=== PATIENT | female | born 1995 | race Caucasian/White ===

== ENCOUNTER → 2019-03-07 | Outpatient (CLI) | payer MEDICAID, SELFPAY ==
[2019-03-07 17:56] LABS: Chlamydia Trachomatis by PCR Negative (Negative); Neisserai gonorrhoeae by PCR Negative (Negative); Probe Check PASS; Sample Adequacy Control PASS; Specimen Processing Control PASS
[2019-03-13 11:37] LABS: HPV Reflexed? NOT INDICATED
== END | disposition home or self-care (01) ==
LOC: LABSPEC 15:14
PROVIDERS: Visit Provider Obstetrics & Gynecology
DX: Z32.01 Encounter for pregnancy test, result positive (principal); Z12.4 Encounter for screening for malignant neoplasm of cervix; Z11.3 Encounter for screening for infections with a predominantly sexual mode of transmission
CPT/HCPCS: 87491; 87591; 88175; G0145

== ENCOUNTER → 2019-03-21 | Outpatient (CLI) | payer MEDICAID, SELFPAY ==
[2019-03-21 16:31] LABS: Absolute Lymphocyte Count 2.46 X10^3/ul (0.83-4.51); Absolute Neutrophil Count 12.8 X10^3/uL (2.0-7.7); Basophil# 0.02 X10^3/uL; Basophil% 0.1 % (0-1); Eosinophil# 0.16 X10^3/uL; Hematocrit 36.4 % (37-47); Hemoglobin 12.5 g/dl (12.0-15.0); Lymphocyte # 2.46 X10^3/ul (4.0); Mean Corp Hgb Conc 34.3 g/gl (32-36); Mean Corpuscular Hgb 29.2 pg (27.0-32.0); Mean Platelet Vol. 9.8 fl (6.2-12.0); Monocyte# 0.94 X10^3/uL; Monocyte% 5.7 % (0-10); Neutrophil # 12.75 X10^3/uL (2.7-7.7); Neutrophil % 77.6 % (47-70); Platelet Count 308 K/mm3 (150-450); RBC Distribution Width CV 14.4 % (11.6-14.6); Red Blood Count 4.28 M/mm3 (4.2-5.4); White Blood Count 16.4 K/mm3 (4.4-11.0)
[2019-03-21 16:33] LABS: POSITIVE COUNT NO; POSITIVE DIFFERENTIAL NO; POSITIVE MORPHOLOGY NO
[2019-03-21 16:40] LABS: Color, Urine Yellow (Yellow); Glucose, Dipstick Normal (Normal); Ketone-Dipstick Negative (Negative); Leukocyte Esterase-Dipstick 25 /ul (Negative); Nitrite-Dipstick Negative (Negative); Occult Blood-Urine Negative /ul (Negative); Protein-Dipstick Negative (Negative); Urine Bilirubin Dipstick Negative (Negative); Urine Clarity Clear (Clear); Urine Urobilinogen Normal (Normal)
[2019-03-21 16:44] LABS: Amphetamine Urine VISTA NEGATIVE (<1000 ng/mL); Barbiturate Urine VISTA NEGATIVE (< 200 ng/mL); Benzodiazepine Urine VISTA NEGATIVE (< 200 ng/mL); Cocaine Urine VISTA NEGATIVE (< 300 ng/mL); Ecstacy Urine VISTA NEGATIVE (< 500 ng/mL); Methadone Urine VISTA NEGATIVE (< 300 ng/mL); PCP Urine VISTA NEGATIVE (< 25 ng/mL); THC Urine VISTA NEGATIVE (< 50 ng/mL); Vista UDS pH Range 6
[2019-03-21 17:05] LABS: COTININE Drug Screen Negative (<200 ng/mL)
[2019-03-21 17:06] LABS: Thyroid Stim Hormone (TSH) 1.84 uIU/mL (0.358-3.74)
[2019-03-21 17:55] LABS: HIV - WCH Non-Reactive (Nonreactive); Rubella IgG 3.1 IU/mL
[2019-03-22 02:32] LABS: Prenatal RPR NONREACTIVE (NONREACTIVE)
[2019-03-25 11:52] LABS: HEPATITIS B SURFACE AG Negative (Negative); Hep C Antibodies <0.1 s/co ratio (0.0-0.9)
== END | disposition home or self-care (01) ==
LOC: WOBLAB 16:07
PROVIDERS: Visit Provider Obstetrics & Gynecology
DX: Z34.82 Encounter for supervision of other normal pregnancy, second trimester (principal)
CPT/HCPCS: 36415; 80307; 81002; 84443; 85025; 86703; 86762; 86803; 87340

== ENCOUNTER → 2019-06-19 16:41 | Outpatient (CLI) | payer MEDICAID, SELFPAY ==
[2019-06-19 17:42] LABS: Hematocrit 30.7 % (37-47); Hemoglobin 10.1 g/dL (12.0-15.0); Mean Corp Hgb Conc 32.9 g/dL (32-36); Mean Corpuscular Hgb 29.5 pg (27.0-32.0); Mean Corpuscular Volume 89.8 fL (81-99); Mean Platelet Vol. 9.6 fl (6.2-12.0); Platelet Count 353 K/mm3 (150-450); RBC Distribution Width CV 13.1 % (11.6-14.6); RBC Distribution Width SD 42.9 fl (35.1-43.9); Red Blood Count 3.42 M/mm3 (4.2-5.4); White Blood Count 12.9 K/mm3 (4.4-11.0)
[2019-06-19 18:16] LABS: Glucose Challenge Gest 1H 50g 122 mg/dL (70-140)
== END ==
PROVIDERS: Visit Provider Obstetrics & Gynecology
DX: Z34.83 Encounter for supervision of other normal pregnancy, third trimester (principal)
CPT/HCPCS: 36415; 82950; 85027; 86850

== ENCOUNTER → 2019-08-15 16:47 | Outpatient (CLI) | payer MEDICAID, SELFPAY | PROVIDERS: Referring Provider Advanced Practice Midwife; Visit Provider Advanced Practice Midwife | DX: Z36.85 Encounter for antenatal screening for Streptococcus B (principal) | CPT/HCPCS: 87081 ==

== ENCOUNTER → 2020-02-04 11:05 | Outpatient (CLI) | payer MEDICAID, SELFPAY ==
[2020-02-04 12:41] LABS: hCG Titer Quant., Serum 12137 mIU/mL (1-3)
== END ==
PROVIDERS: Visit Provider Obstetrics & Gynecology
DX: N91.2 Amenorrhea, unspecified (principal)
CPT/HCPCS: 36415; 84702

== ENCOUNTER → 2020-02-06 | Outpatient (CLI) | payer MEDICAID, SELFPAY ==
[2020-02-06 18:25] LABS: Absolute Lymphocyte Count 1.98 X10^3/uL (0.83-4.51); Basophil# 0.03 X10^3/uL; Basophil% 0.3 % (0-1); Eosinophil# 0.08 X10^3/uL; Eosinophils% 0.7 % (0-5); Hematocrit 33.4 % (37-47); Hemoglobin 10.7 g/dL (12.0-15.0); Lymphocyte # 1.98 X10^3/ul (4.0); Mean Corpuscular Hgb 25.9 pg (27.0-32.0); Mean Corpuscular Volume 80.9 fL (81-99); Mean Platelet Vol. 10.3 fl (6.2-12.0); Monocyte% 4.3 % (0-10); NRBC Flagged by Analyzer 0 % (0-5); Neutrophil # 9.01 X10^3/uL (2.7-7.7); Platelet Count 358 K/mm3 (150-450); RBC Distribution Width CV 16.3 % (11.6-14.6); RBC Distribution Width SD 47.8 fl (35.1-43.9); Red Blood Count 4.13 M/mm3 (4.2-5.4); White Blood Count 11.7 K/mm3 (4.4-11.0)
[2020-02-06 19:11] LABS: Color, Urine Yellow (Yellow); Glucose, Dipstick Normal (Normal); Ketone-Dipstick Negative (Negative); Leukocyte Esterase-Dipstick 25 /ul (Negative); Nitrite-Dipstick Negative (Negative); Occult Blood-Urine Negative /ul (Negative); Protein-Dipstick Negative (Negative); Specific Gravity, Urine 1.015 (1.002-1.030); Urine Bilirubin Dipstick Negative (Negative); Urine Clarity Clear (Clear); Urine Urobilinogen Normal (Normal)
[2020-02-06 19:14] LABS: Thyroid Stim Hormone (TSH) 0.88 uIU/mL (0.358-3.74)
[2020-02-06 19:21] LABS: Amphetamine Urine VISTA NEGATIVE (<1000 ng/mL); Barbiturate Urine VISTA NEGATIVE (< 200 ng/mL); Benzodiazepine Urine VISTA NEGATIVE (< 200 ng/mL); Cocaine Urine VISTA NEGATIVE (< 300 ng/mL); Ecstacy Urine VISTA NEGATIVE (< 500 ng/mL); Methadone Urine VISTA NEGATIVE (< 300 ng/mL); PCP Urine VISTA NEGATIVE (< 25 ng/mL); THC Urine VISTA NEGATIVE (< 50 ng/mL); Vista UDS pH Range 6
[2020-02-06 19:52] LABS: COTININE Drug Screen Negative (<200 ng/mL)
[2020-02-06 21:47] LABS: Chlamydia Trachomatis by PCR Negative (Negative); Neisserai gonorrhoeae by PCR Negative (Negative); Probe Check PASS; Sample Adequacy Control PASS; Specimen Processing Control PASS
[2020-02-07 07:29] LABS: HIV - WCH Non-Reactive (Nonreactive); Hepatitis B Surface Antigen Non-Reactive (Nonreactive); Hepatitis C Antibody Non-Reactive (Nonreactive); Rubella IgG 68.3 IU/mL
[2020-02-13 02:30] LABS: Prenatal RPR NONREACTIVE (NONREACTIVE)
== END | disposition home or self-care (01) ==
LOC: LABSPEC 17:35
PROVIDERS: Visit Provider Obstetrics & Gynecology
DX: Z34.82 Encounter for supervision of other normal pregnancy, second trimester (principal)
CPT/HCPCS: 80307; 81002; 84443; 85025; 86703; 86762; 86803; 87340; 87491; 87591

== ENCOUNTER → 2020-05-05 14:24 | Outpatient (CLI) | payer MEDICAID, SELFPAY ==
[2020-05-05 15:54] LABS: Hematocrit 33.3 % (37-47); Hemoglobin 10.9 g/dL (12.0-15.0); Mean Corp Hgb Conc 32.7 g/dL (32-36); Mean Corpuscular Hgb 28.4 pg (27.0-32.0); Mean Corpuscular Volume 86.7 fL (81-99); Mean Platelet Vol. 9.8 fl (6.2-12.0); Platelet Count 371 K/mm3 (150-450); RBC Distribution Width CV 14.3 % (11.6-14.6); RBC Distribution Width SD 45.1 fl (35.1-43.9); Red Blood Count 3.84 M/mm3 (4.2-5.4); White Blood Count 13.6 K/mm3 (4.4-11.0)
[2020-05-05 16:04] LABS: Glucose Challenge Gest 1H 50g 90 mg/dL (70-140)
== END ==
PROVIDERS: Visit Provider Obstetrics & Gynecology
DX: Z34.83 Encounter for supervision of other normal pregnancy, third trimester (principal)
CPT/HCPCS: 36415; 82950; 85027; 86850

== ENCOUNTER → 2020-06-30 | Outpatient (CLI) | payer MEDICAID, SELFPAY | END | disposition home or self-care (01) | LOC: LABSPEC 14:26 | PROVIDERS: Visit Provider Obstetrics & Gynecology | DX: Z36.85 Encounter for antenatal screening for Streptococcus B (principal) | CPT/HCPCS: 87081 ==

== ENCOUNTER → 2020-07-15 10:11 | Outpatient (CLI) | payer MEDICAID, SELFPAY | PROVIDERS: PCP Student in an Organized Health Care Education/Training Program; Referring Provider Obstetrics & Gynecology; Visit Provider Obstetrics & Gynecology | DX: Z11.59 Encounter for screening for other viral diseases (principal) | CPT/HCPCS: 87635; C9803; U0003 ==

== ENCOUNTER 2020-07-22 23:31 | Inpatient (IN) | payer MEDICAID, SELFPAY ==
[2020-07-22 23:08] VITALS: BMI 33.6
[2020-07-22 23:18] VITALS: BP 112/72; PULSE 78; TEMP 36.9; O2SAT 99
[2020-07-22] MEDS: Lactated Ringers 500 ML 999 ML IV (23:40)
[2020-07-22] MEDS: Lactated Ringers 1,000 ML 50 ML IV (23:40)
[2020-07-22 23:42] VITALS: BP 114/70
[2020-07-22 23:43] LABS: ROM Internal Control Test YES-OK TO RESULT pt. (Internal QC)
[2020-07-22 23:44] LABS: ROM Patient Test POSITIVE (Negative)
[2020-07-22 23:51] LABS: Absolute Lymphocyte Count 5.32 X10^3/uL (0.83-4.51); Absolute Neutrophil Count 12.5 X10^3/uL (2.0-7.7); Basophil# 0.07 X10^3/uL; Basophil% 0.4 % (0-1); Eosinophil# 0.12 X10^3/uL; Eosinophils% 0.6 % (0-5); Hematocrit 35.4 % (37-47); Hemoglobin 11.7 g/dL (12.0-15.0); Lymphocyte # 5.32 X10^3/ul (4.0); Lymphocyte % 27.3 % (19-41); Mean Corp Hgb Conc 33.1 g/dL (32-36); Mean Corpuscular Volume 84.7 fL (81-99); Mean Platelet Vol. 10.1 fl (6.2-12.0); Monocyte# 1.01 X10^3/uL; Monocyte% 5.2 % (0-10); NRBC Flagged by Analyzer 0 % (0-5); Neutrophil # 12.51 X10^3/uL (2.7-7.7); POSITIVE DIFFERENTIAL YES; Platelet Count 366 K/mm3 (150-450); RBC Distribution Width CV 16.2 % (11.6-14.6); RBC Distribution Width SD 49.6 fl (35.1-43.9); Red Blood Count 4.18 M/mm3 (4.2-5.4); White Blood Count 19.5 K/mm3 (4.4-11.0)
[2020-07-23] VITALS (19 sets, daily range): BP systolic 113–142; BP diastolic 65–91; PULSE 63–95; RESP 16–18; TEMP 36.3–36.8; O2SAT 98–99
[2020-07-23 00:11] LABS: Differential Indicated SCAN CRITERIA MET
[2020-07-23 00:15] LABS: Differential Comment SCANNED
--- NOTE | 2020-07-23 00:18 | PCM.HP.OB ---
- Problem List (1) 39 weeks gestation of Status: Acute History Date of Admission: 07/23/20 Final SIDDHARTHA: 07/26/20 Final SIDDHARTHA Source: US <20 weeks Gestational age: 39 Weeks and 4 Days History of this : This is a 24 year-old, G [2], P [1], at 39 4/7 weeks gestational age presents with c/o painful contractions and leaking of fluid. Allergies No Known Allergies Allergy (Verified 07/23/20 00:02) Home Medications: Home Medications Ferrous Sulfate 325 mg PO DAILY 07/22/20 Pnv No.95/Ferrous Fum/Folic AC [ Caplet] 1 tab PO DAILY 07/22/20 Smoking Status: Former smoker Alcohol: None Number of Fetus(es): 1 NST - FHR Rate Baby A Baseline: 130 Variability:: Moderate Accelerations:: 15 x 15 Decelerations:: None NST Reactive:: Yes FHR Category:: Category I Uterine Activity:: 4/10 min History Past Pregnancies: Past Pregnancies Delivery Date Name GA/ Weeks Outcome Route Wt Sex Labor Length Anesthesia Delivery Location Provider FOB Labs: Mom's Problem List Problem Status Onset Code 39 weeks gestation of Acute Z3A.39 Mom's Labs & Results 07/22/20 07/22/20 07/22/20 23:27 23:40 23:40 WBC 19.5 H RBC 4.18 L Hgb 11.7 L Hct 35.4 L MCV 84.7 MCH 28.0 MCHC 33.1 RDW Std Deviation 49.6 H RDW Coeff of Momo 16.2 H Plt Count 366 MPV 10.1 Immature Gran % (Auto) 2.500 H Neut % (Auto) 64.0 Lymph % (Auto) 27.3 [place] % (Auto) 5.2 Eos % (Auto) 0.6 Baso % (Auto) 0.4 Absolute Neuts (auto) 12.5 H Absolute Lymphs (auto) 5.32 H Nucleated RBC % 0 Differential Comment SCANNED Vag Amniotic Fld Detect POSITIVE H Blood Type A NEGATIVE Antibody Screen NEGATIVE Course Did the patient receive Yes care? Labs Blood Type: A RH: NEGATIVE RPR/VDRL/Syphilis Nonreactive Rubella status Immune HbSAg Negative Date Done: 02/06/20 Chlamydia Negative Gonorrhea Negative HIV/AIDS Non-Reactive Group B Strep: Negative Current Obstetrical History Gestational Diabetes No Incompetent Cervix No Infertility No IUGR No Macrosomia No Hypertension/Pre-eclampsia No Placenta Previa/Abruption No PTL/PROM No Uterine anomaly No Oligohydramnios No Polyhydramnios No Multiple gestation No Past Medical History Asthma No Diabetes No Hypertension No Heart disease No Mitral valve prolapse No Neurologic/Seizure disorder/ No Migraines Kidney disease No Liver disease No Varicosities No Clotting disorders/Hx of DVT No Thyroid Dysfunction No Other medical diseases No Psychiatric disorders No Major trauma No Abnormal PAP smear No Sleep apnea No Mammogram in the last 2 years No Social History Marital Status: SINGLE Alleged father Ford Vaughn Hx Smoking Yes Smoking Status Former smoker Expected Infant Delivery Method: Spontaneous Vaginal Number of Visits: 9 Physical Exam Vitals: Vital Signs Temp Pulse BP Pulse Ox 98.5 F 78 114/70 99 07/22/20 23:18 07/22/20 23:18 07/22/20 23:42 07/22/20 23:18 General: Alert, Oriented x3, Cooperative, - - breathing through contractions heavily HEENT: Atraumatic, Normocephalic Cardiovascular: Regular rate, Regular Rhythm Lungs: Normal air movement Abdomen: Soft, Non Tender, Non-Distended, Gravid Neurological: Neuro grossly intact DEATH CLEARANCE COORDINATOR: Normal external genitalia Estimated gestational size: Appropriate for gestational size Presentation: Cephalic Cervix Dilation (cm): 6 - per RN exam [place] Station: 0 Effacement (%): 85 Assessment/Plan All Active Problems 39 weeks gestation of (Acute) This is a 24 year-old, G [2], P [1], at 39,4 weeks gestational age in active labor, SROM, Cat I FHR -Epidural per patient request -GBS neg -Maternal and statuses reassuring -Case management consultation
[2020-07-23] MEDS: Oxytocin 30 units/NS 500 ml 30 UNITS/500 ML IV.SOLN 334 UNITS IV (00:40)
--- NOTE | 2020-07-23 01:18 | PCM.OPRPT ---
Problem List (1) 39 weeks gestation of Status: Acute (2) (spontaneous vaginal delivery) Status: Acute Vaginal Delivery Maternal Presentation: Active Labor Amniotic Membrane Rupture Type: Spontaneous at home Amniotic Fluid Description: Clear Final SIDDHARTHA: 07/26/20 Final SIDDHARTHA Source: US <20 weeks Gestational age: 39 Weeks and 4 Days Date of Procedure: 07/23/20 Pre-Operative Diagnosis: 39 4/7 wga, labor Post-Operative Diagnosis: 39 4/7 wga, labor Surgery/ Procedure Performed: Spontaneous Vaginal Delivery Type of Anesthesia: None Description of Procedure: Patient was FD/+ 3 station on my arrival. She pushed to deliver a male over and an intact perineum. The cord was doubly clamped and cut and the was evaluated by nursery personnel. The placenta delivered spontaneously and appeared intact on inspection however retained membranes were visible vaginally. These were teased down and an intrauterine exam was performed with retrieval of further membranes until non was palpable. The uterus remained firm at the umbilicus.. Sponge counts correct x 2. Presentation: Vertex Placental Delivery Description: Spontaneous Placenta Disposition: [facility] Cord Vessel Description: 3 Vessels Nuchal Cord Compression: Without compression Cord Entanglement: Around neck x 1, loose Estimated Blood Loss: 250 ml Infant A gender: Male (1 minute): 6 (5 minute): 9 Episiotomy Description: None Laceration: None Medications given after delivery: IV Pitocin Complications: None
[2020-07-23] MEDS: Methylergonovine 0.2 MG/ML Ampul IM (02:07)
--- NOTE | 2020-07-23 05:14 | NURSING ---
0020: Siena Booth, head charger notes bugs on patient's bag. Upon questioning patient, patient admits to bed bug and flea issue at home. Contact precautions initiated. 0023: Belongings double bagged and significant other states that he will remove the belongings from the hospital. EVS notified of triage unit per Siena Booth. Triage unit stripped of all bed linen and double bagged, following this discovery. Unit now closed until further notice. Following delivery, patient showered and moved to clean room with clean gown on. EVS notified of room 14 per Siena Booth.
[2020-07-23] MEDS: Prenatal Vits Tablet 1 TABLET PO (11:57)
[2020-07-23] MEDS: Acetaminophen 500 MG Tablet 1000 MG PO (12:03)
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
--- NOTE | 2020-07-23 15:30 | CASEMGMT ---
Social Work Labor and Delivery Unit Called [facility] ([facility]) and spoke with Fátima in the intake department. Referral due to concerns related to home environment with an almost one year old living in this home and soon to be a . Additional concerns related to mother of baby appearing to need reinforcement with basic care of baby; concerns for learning. Brief maternal and infant histories provided, and did include father of baby reported emotional health issues. Fátima asks for a call back tomorrow with an update as to how parents did overnight. If screened in this will be a dependency case. Updated Sneha RN. Plan: Social work to follow up on 07.24.2020. Refer to prior social work note this date for details. -FRANKO Lizarraga, REFRACTORY MANAGER
[2020-07-23] MEDS: Ibuprofen 600 MG Tablet PO (20:20)
[2020-07-24 02:05] VITALS: BP 105/64; PULSE 75; RESP 18; TEMP 36.2
--- NOTE | 2020-07-24 08:36 | PCM.PN.OB ---
Patient Problems: Active and Suspected Problems 39 weeks gestation of (Acute) (spontaneous vaginal delivery) (Acute) Subjective: No overnight complaints. Pain well controlled. Minimal lochia - Physical Exam Vitals/I&O's: Vital Signs Temp Pulse Resp BP Pulse Ox 97.2 F L 75 18 105/64 99 07/24/20 02:05 07/24/20 02:05 07/24/20 02:05 07/24/20 02:05 07/23/20 01:47 Oxygen Delivery Method Room Air Weight: 202 lb Body Mass Index (BMI) 33.6 Intake and Output for Last 24 Hours 07/22/20 07/23/20 07/24/20 23:59 23:59 23:59 Intake Total 0.83 / 0.83 1070 / 1070 Output Total 425 / 425 Balance 0.83 / 0.83 645 / 645 General: Alert, Oriented x3, Cooperative, No apparent distress HEENT: Atraumatic, PERRLA, Normocephalic Oral: Moist Mucosa Neck: Supple Abdomen: Bowel Sounds Present, Soft, Non Tender, Gravid - Fundus firm and below umbilicus Extremities: No clubbing, No cyanosis, No edema Psych/Mental Status: Normal Affect, Appropriate, Alert and oriented to time, place, person, mood and affect Current Medications Acetaminophen (Acetaminophen 500 Mg Tablet) 1,000 mg PO Q8H PRN PRN PRN Reason: Pain Score 1-10 Last Admin: 07/23/20 12:03 Dose: 1,000 mg Documented by: Bisacodyl (Bisacodyl 10 Mg Suppository) 10 mg RECTAL UD PRN PRN Reason: If no BM Dibucaine (Dibucaine 30 Gm Tube) 1 applic TOPICAL TID PRN PRN; Protocol PRN Reason: Discomfort Hydrocortisone (Hydrocortisone 2.5% Crm) 1 applic TOPICAL TID PRN PRN; Protocol PRN Reason: Discomfort Ibuprofen (Ibuprofen 600 Mg Tablet) 600 mg PO Q6H PRN PRN PRN Reason: Pain Score 1-10 Last Admin: 07/23/20 20:20 Dose: 600 mg Documented by: Methylergonovine Maleate (Methylergonovine 0.2 Mg/Ml Ampul) 0.2 mg IM X1 PRN PRN Reason: Excess bleeding/uterine atony Last Admin: 07/23/20 02:07 Dose: 0.2 mg Documented by: Ondansetron HCl (Ondansetron 4 Mg/2 Ml Vial) 4 mg IV Q4H PRN PRN PRN Reason: NAUSEA Multivit/Folic Acid/Iron ( Vits Tablet) 1 tablet PO DAILY@1200 CINDY Last Admin: 07/23/20 11:57 Dose: 1 tablet Documented by: Senna/Docusate Sodium (Senna/Docusate Sodium 1 Tablet) 1 - 2 tablet PO DAILY PRN PRN PRN Reason: Constipation Simethicone (Simethicone 80 Mg Tablet) 80 mg PO PCHS PRN PRN Reason: Indigestion/Stomach pain Sodium Chloride (0.9% Saline Lock 10 Ml Syringe) 5 - 15 ml IV UD PRN PRN Reason: SALINE FLUSH Medical Necessity - Tobacco Use Smoking Status: Former smoker Assessment/Plan All Active Problems 39 weeks gestation of (Acute) (spontaneous vaginal delivery) (Acute) day 1 status post spontaneous vaginal delivery. Bottlefeeding. Likely home tomorrow based on asphalt surface heater operator's recommendations.
[2020-07-24 08:43] VITALS: BP 107/57; PULSE 78; RESP 16; TEMP 36.3; O2SAT 98
[2020-07-24 13:53] VITALS: BP 114/75; PULSE 86; RESP 16; TEMP 36.7; O2SAT 97
--- NOTE | 2020-07-24 15:00 | CASEMGMT ---
Social Work Labor and Delivery Reason for Intervention: Follow up with [facility] ([facility]), mother of baby (MOB) and father of baby (FOB). Summary: Chart reviewed. Noted, and appreciated, nursing documentation regarding parent/child interactions. Noted MOB with continued reinforcement of baby care: feeding and diaper changing. Spoke with RN caring for MOB this date and RN has not observed FOB providing any hands on assistance to MOB with the care of baby. Per RN, staff has observed MOB to have literal/concrete thinking as evidenced by MOB reportedly telling the baby to stop kicking feet when MOB was changing the diapers and telling to baby in a way that appeared MOB thought baby could understand this. RN also reports MOB did talk about not being happy about this and having a second baby. Received call from Fátima Valentine at [facility] ([facility]), , who reports this documentation writer's referral was screened in for investigation as an Alternative Response Neglect. Assigned worker is Ramsey Plata (extension [phone]). Called Ramsey who reports has already spoken to the MOB about opening a case and [facility] intent to try to help the family with the home environment, exploring funding options for extermination of bug infestation in the home. Updated Ramsey to other concerns this documentation writer had conveyed during initial referral, as well as reviewed additional documentation since initial referral. Let Yadi know that MOB and baby are slated for discharge this weekend. Met with MOB in room today to provide resources and review plan/needs for discharge. FOB also in room for conversation. Provided MOB with [facility] resources list, some information on depression and resources for such, as well as included information on safe sleeping and shaken baby prevention. Reviewed information, and went through some of the signs and symptoms of mood and anxiety issues. Addressed with MOB plan for home going. MOB reports [facility] has called and plans to help look for money for extermination of the home. MOB reports [facility] has asked MOB to take the children to a friends home in the interim. MOB reports [place] a friend in [place] who has taken care of own bug infestation so believes this will be a clean home. Addressed with MOB as to how MOB is feeling about the baby. MOB reports to love the baby, and not to love any less due not wanting to having the baby initially, and also that would not trade Irineo for anything. FOB did make a comment about MOB missing their daughter. MOB voiced that does miss the older daughter and referred to the child as She's my little brat but I love her. Addressed baby's feeding, and MOB able to say that is to feed baby every 2-3 hours at this point, and belief that feedings are getting better. This documentation writer explored with FOB as to whether FOB has done any care for baby yet. FOB reports he just tried to feed baby a bottle prior to this documentation writer coming in. FOB provided some input during the assessment and talked about own goals, such as to join the and become a sniper. FOB shared that MOB does not want FOB to do this, but that FOB believes self to be good at sharp shooting due to sniper skills from playing video games. FOB also shared that plans to start teaching the daughter at the age of 2 about guns, gun safety, and mentioned to take the daughter hunting. FOB reports there are guns in the home and have locks on them. Assessment: MOB and FOB both cooperative with social work visit, pleasant and MOB held good eye contact. FOB and MOB both sitting on the bed, and FOB playing video games on his phone. FOB intermittently engaged in conversation, but also focused on the game playing. This documentation writer did observe MOB and FOB with delayed response to the baby crying as evidenced by MOB continuing to talk to this documentation writer, without much outward response to baby's cries. MOB did dart eyes to baby a couple of times when baby crying, FOB continued to play video games, glanced at baby and sighed then continued to play the game. MOB did eventually ask FOB to get the baby for MOB, as FOB was closer to the baby. FOB agreed, finished up some of the video game and then pulled the crib to the bed and picked baby up from FOB in a sitting position, then handed the baby back to MOB. FOB then continued to play video game on phone. MOB talked to baby in a loving way and handled baby appropriately. MOB noticed that baby's blanket was soaked, uncertain whether from urine or formula. MOB did attend to baby and asked if nursing could being in new bedding for the baby. This documentation writer updated RN of need for bedding. Plan: MOB and baby to discharge home with [facility] following in the community. Will call [facility] and update to interactions with the family this afternoon. Resources have been provided as well for home going. Family already involved with [facility] [employer]. -FRANKO Lizarraga, HAIR SPINNING MACHINE OPERATOR
[2020-07-24] MEDS: Prenatal Vits Tablet 1 TABLET PO (18:44)
[2020-07-24 20:20] VITALS: BP 128/82; PULSE 83; RESP 18; TEMP 36.6; O2SAT 98
[2020-07-25 01:04] VITALS: BP 120/76; PULSE 78; RESP 18; TEMP 36.6
[2020-07-25 07:45] VITALS: BP 110/74; PULSE 69; RESP 14; TEMP 36.3; O2SAT 98
[2020-07-25] MEDS: Etonogestrel 68 MG IMPLANT SQ (08:48)
--- NOTE | 2020-07-25 09:06 | PCM.PN.OB ---
Patient Problems: Active and Suspected Problems 39 weeks gestation of (Acute) (spontaneous vaginal delivery) (Acute) Subjective: Overnight complaints. Pain well controlled. Minimal lochia. Denies chest pain, shortness of breath, nausea vomiting. Objective: Procedure: Nexplanon insertion. Anatomical structures palpated. Betadine preparation over procedure site. 3 cc of 1% lidocaine injection. Using Nexplanon insertion device Nexplanon inserted with ease. Good hemostasis noted. Steri-Strips over insertion site. Arm wrapped with Carl wrap - Physical Exam Vitals/I&O's: Vital Signs Temp Pulse Resp BP Pulse Ox 97.8 F 78 18 120/76 98 07/25/20 01:04 07/25/20 01:04 07/25/20 01:04 07/25/20 01:04 07/24/20 20:20 Oxygen Delivery Method Room Air Weight: 202 lb Body Mass Index (BMI) 33.6 Intake and Output for Last 24 Hours 07/23/20 07/24/20 07/25/20 23:59 23:59 23:59 Intake Total 1070 / 1070 Output Total 425 / 425 Balance 645 / 645 General: Alert, Oriented x3, Cooperative HEENT: Atraumatic Oral: Moist Mucosa Neck: Supple Lungs: Clear to auscultation Extremities: No clubbing, No cyanosis, No edema Psych/Mental Status: Normal Affect, Appropriate, Alert and oriented to time, place, person, mood and affect Current Medications Acetaminophen (Acetaminophen 500 Mg Tablet) 1,000 mg PO Q8H PRN PRN PRN Reason: Pain Score 1-10 Last Admin: 07/23/20 12:03 Dose: 1,000 mg Documented by: Bisacodyl (Bisacodyl 10 Mg Suppository) 10 mg RECTAL UD PRN PRN Reason: If no BM Dibucaine (Dibucaine 30 Gm Tube) 1 applic TOPICAL TID PRN PRN; Protocol PRN Reason: Discomfort Hydrocortisone (Hydrocortisone 2.5% Crm) 1 applic TOPICAL TID PRN PRN; Protocol PRN Reason: Discomfort Ibuprofen (Ibuprofen 600 Mg Tablet) 600 mg PO Q6H PRN PRN PRN Reason: Pain Score 1-10 Last Admin: 07/23/20 20:20 Dose: 600 mg Documented by: Methylergonovine Maleate (Methylergonovine 0.2 Mg/Ml Ampul) 0.2 mg IM X1 PRN PRN Reason: Excess bleeding/uterine atony Last Admin: 07/23/20 02:07 Dose: 0.2 mg Documented by: Ondansetron HCl (Ondansetron 4 Mg/2 Ml Vial) 4 mg IV Q4H PRN PRN PRN Reason: NAUSEA Multivit/Folic Acid/Iron ( Vits Tablet) 1 tablet PO DAILY@1200 CINDY Last Admin: 07/24/20 18:44 Dose: 1 tablet Documented by: Senna/Docusate Sodium (Senna/Docusate Sodium 1 Tablet) 1 - 2 tablet PO DAILY PRN PRN PRN Reason: Constipation Simethicone (Simethicone 80 Mg Tablet) 80 mg PO PCHS PRN PRN Reason: Indigestion/Stomach pain Sodium Chloride (0.9% Saline Lock 10 Ml Syringe) 5 - 15 ml IV UD PRN PRN Reason: SALINE FLUSH Medical Necessity - Tobacco Use Smoking Status: Former smoker Assessment/Plan All Active Problems 39 weeks gestation of (Acute) (spontaneous vaginal delivery) (Acute) day 2 status post vaginal delivery. Bottlefeeding. Nexplanon inserted today. Okay to discharge home if okay with auricular therapist.
--- NOTE | 2020-07-25 09:09 | DCINST_ITS ---
Discharge Diet: No Restrictions Discharge Activity: Return to Normal Activity, May Drive, May Shower May resume sexual activity in: 2 weeks Weight Bearing Status: Weight bearing as tolerated Call your doctor if your incision/area has: Foul Smelling Discharge Call your doctor if you observe: Fever of 101 or Higher, Shortness of breath, Chest pain Additional Instructions: If you experience any of the following, contact your healthcare provider. * Bleeding that soaks a pad every hour for 2 hours * Fever 100.4 or higher * Unrelieved incision or abdominal pain * Swelling, redness, discharge or bleeding from your incision or episiotomy site * Your incision begins to separate * Problems urinating (including inability to urinate or burning while urinating). * Visual changes * Severe headache * Flu-like symptoms * Pain or redness in one of both of your breasts * Pain, warmth, tenderness or swelling in your legs, especially the calf area * Frequent nausea and vomiting * Symptoms of depression or anxiety If you experience any of the following, call 911 or go to the nearest Emergency Room. * Chest pain * Problems breathing * Seizure activity * Partial or complete paralysis of a body part, slurred speech, weakness or drooping of the face, or a sudden inability to walk or hold your balance Allergies/Adverse Reactions: Allergies No Known Allergies Allergy (Verified 07/23/20 00:02) Medications to take at Discharge Ferrous Sulfate 325 mg PO DAILY 07/22/20 Pnv No.95/Ferrous Fum/Folic AC [ Caplet] 1 tab PO DAILY 07/22/20 Please Follow Up With: Bjorn Mcclellan MD When: 4 to 6 weeks Primary Care Physician: Semaj Simmons DO [Primary Care Provider] - Test Results: Test results from this visit will be discussed in further detail at your follow- up appointment, if applicable.
--- NOTE | 2020-07-25 09:09 | PCM.DCVAG ---
Discharge Diet: No Restrictions Discharge Activity: Return to Normal Activity, May Drive, May Shower May resume sexual activity in: 2 weeks Weight Bearing Status: Weight bearing as tolerated Call your doctor if your incision/area has: Foul Smelling Discharge Call your doctor if you observe: Fever of 101 or Higher, Shortness of breath, Chest pain Additional Instructions: If you experience any of the following, contact your healthcare provider. Bleeding that soaks a pad every hour for 2 hours Fever 100.4 or higher Unrelieved incision or abdominal pain Swelling, redness, discharge or bleeding from your incision or episiotomy site Your incision begins to separate Problems urinating (including inability to urinate or burning while urinating). Visual changes Severe headache Flu-like symptoms Pain or redness in one of both of your breasts Pain, warmth, tenderness or swelling in your legs, especially the calf area Frequent nausea and vomiting Symptoms of depression or anxiety If you experience any of the following, call 911 or go to the nearest Emergency Room. Chest pain Problems breathing Seizure activity Partial or complete paralysis of a body part, slurred speech, weakness or drooping of the face, or a sudden inability to walk or hold your balance Allergies/Adverse Reactions: Allergies No Known Allergies Allergy (Verified 07/23/20 00:02) Medications to take at Discharge Ferrous Sulfate 325 mg PO DAILY 07/22/20 Pnv No.95/Ferrous Fum/Folic AC [ Caplet] 1 tab PO DAILY 07/22/20 Please Follow Up With: Bjorn Mcclellan MD When: 4 to 6 weeks Primary Care Physician: Semaj Simmons DO [Primary Care Provider] - Test Results: Test results from this visit will be discussed in further detail at your follow-up appointment, if applicable.
--- NOTE | 2020-07-25 09:28 | CASEMGMT ---
SW spoke w/RN, any concerns regarding MOB and FOB have already been identified. RN did state pt may need clothes to go home. SW spoke w/MOB, she was given paper scrubs, SW explained will look in the clothing closet in the Rehab Unit to see if there may be warmer clothes for her to go home in today. SW able to bring t-shirt, fleece, and pajama pants to MOB. MOB thanked SW. SW inquired if she has any additional concerns, none identified by MOB. As per FARHEEN who saw pt this week, [facility] already aware MOB and baby going home this weekend. No further needs identified at this time. FRANKO Fatima
[2020-07-25] MEDS: Prenatal Vits Tablet 1 TABLET PO (12:31)
[2020-07-25 12:58] VITALS: BP 116/75; PULSE 73; RESP 16; TEMP 36.1; O2SAT 100
[2020-07-25 16:57] VITALS: BP 129/78; PULSE 80; RESP 16; TEMP 36.2; O2SAT 97
--- NOTE | 2020-07-27 09:57 | CASEMGMT ---
Social Work Labor and Delivery Unit Called [facility] and spoke with Yadi Sherlyn ([phone], extension [phone]). Updated to parent/child interactions this fiction and nonfiction prose writer observed on 07.24.2020, MOB's response about loving the baby, and MOB's voiced intention to take children to a friend's home. Also confirmed that MOB and baby were discharge home on 07.25.2020. No other services requested or indicated. -FRANKO Lizarraga, GIFT MANAGER
== END 2020-07-25 17:15 | disposition home or self-care (01) | DRG 560 ==
LOC: WPOUT 23:32 → WP 23:32
PROVIDERS: Admitting Provider Obstetrics & Gynecology; PCP Student in an Organized Health Care Education/Training Program; Visit Provider Obstetrics & Gynecology
DX: O80 Encounter for full-term uncomplicated delivery (principal); Z3A.39 39 weeks gestation of pregnancy; Z37.0 Single live birth; Z87.891 Personal history of nicotine dependence
CPT/HCPCS: 59025; 59050; 84112; 85025; 86850; 86900; 86901; 99218; J7120; 90686; G0378

== ENCOUNTER → 2023-01-06 | Outpatient (CLI) | payer MEDICAID, SELFPAY ==
[2023-01-16 20:02] LABS: HPV Reflexed? NOT INDICATED
== END | disposition home or self-care (01) ==
LOC: LABSPEC 14:35
PROVIDERS: PCP Student in an Organized Health Care Education/Training Program; Visit Provider Obstetrics & Gynecology
DX: Z12.4 Encounter for screening for malignant neoplasm of cervix (principal)
CPT/HCPCS: 88175; G0145

== ENCOUNTER → 2023-01-26 | Outpatient (CLI) | payer MEDICAID, SELFPAY ==
--- NOTE | 2023-01-26 | IMM_PTH ---
PATIENT: XUAN SHELTON LOC: [facility] U#:[id number] AGE/SX: 27/F ROOM: RE01/26/[address]: Dr. Bjorn Mcclellan MD : 1995 BED: DIS: 01/26/2023 SPEC #: [id number] RECD: 01/27/23 12:53 STATUS: ANGIE REQ #: [id number] LYLE: 01/26/23 00:[address]: Bjorn Mcclellan DEPT: IMMUNOHISTOCHEMISTRY RECD BY: Anna Flores ENTERED: 01/27/23 12:54 SP TYPE: IMMUNO OTHR DR: Dr. Semaj Simmons DO Tissues: A - Uterine cervix, NOS Procedures: p16 (initial) KI-67 (add) PHYSICIAN & INSTITUTION [place] [id number] SPECIMEN INFORMATION: Tissue Source: A ? Cervix at 1, 7 & 11 o?clock Clinical Info: LGSIL Specimen Number: [id number] CPT code: 86230, 82270 METHODOLOGY: Deparaffinized sections of prefer/formalin-fixed tissue or PAP/DQ stained slides are incubated with monoclonal/polyclonal antibodies/oligonucleotide probes. Localization is made via biotin free immunoperoxidase method. Appropriate controls are performed and reacted as expected. Results on target cell population are indicated in the following table: RESULTS: ANTIBODY / CLONE RESULT Block A P16 (E6H4) positive, block staining Ki-67 (30-9) positive, moderate to high These tests were developed and their performance characteristics determined by [facility]. They may not have been cleared or approved by the U.S. Food and Drug Administration. The FDA has determined that such clearance or approval is not necessary. The above immunohistochemical/dualISH markers are ordered and reviewed by the Pathologist. INTERPRETATION: A. Cervix at 1, 7 & 11 o?clock, biopsy: Focal mild and moderate squamous dysplasia. SJ:livan 01/30/2023
--- NOTE | 2023-01-26 | CER_PTH ---
PATIENT: XUAN SHELTON LOC: [facility] U#:[id number] AGE/SX: 27/F ROOM: RE01/26/[address]: Dr. Bjorn Mcclellan MD : 1995 BED: DIS: 01/26/2023 SPEC #: [id number] RECD: 01/26/23 12:51 STATUS: ANGIE REBoaz #: [id number] LYLE: 01/26/23 00:[address]: Bjorn Mcclellan DEPT: SURGICAL PATHOLOGY RECD BY: Ned Gold ENTERED: 01/26/23 12:52 SP TYPE: CERV OTHR DR: Dr. Semaj Simmons DO Tissues: A - Uterine cervix, NOS B - Endocervical Procedures: Surgery Specimen Level IV HEADER OPERATION: Colposcopy PRE-OP DIAGNOSIS: LGSIL TISSUE SUBMITTED: A ? 1, 7, 11 o?clock, B - ECC MICROSCOPIC DIAGNOSIS A. 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 Moderate acute and chronic inflammation and squamous metaplasia. See comment. B. Endocervical curettings: Fragments of benign endocervical mucosa with acute and chronic inflammation, blood and mucous. Negative for dysplasia. NORA:livan 01/27/2023 COMMENT A. Immunohistochemistry ([id number]) for surrogate HPV marker (p16) supports the above diagnosis. MICROSCOPIC DESCRIPTION Slides are reviewed. GROSS DESCRIPTION A - Received in fixative is one container labeled with the patient's name and designated 1, 7, 11 o'clock. The specimen consists of multiple irregular fragments of light mills soft tissue mixed with mucoid tissue that in aggregate measure 2.0 x 0.5 x 0.1 cm. The specimen is totally submitted in one cassette. B - Received in fixative is one container labeled with the patient's name and designated ECC. The specimen consists of multiple fragments of hemorrhagic mucoid tissue that in aggregate measure 1.5 x 1.0 x 0.1 cm. The specimen is totally submitted in one cassette. / NORA:livan 01/26/2023 TC:3 CPT: 91547 x2
== END | disposition home or self-care (01) ==
LOC: LABSPEC 12:03
PROVIDERS: PCP Student in an Organized Health Care Education/Training Program; Visit Provider Obstetrics & Gynecology
DX: R87.612 Low grade squamous intraepithelial lesion on cytologic smear of cervix (LGSIL) (principal)
CPT/HCPCS: 88305; 88341; 88342

== ENCOUNTER 2023-02-20 05:39 | Day surgery (SDC) | payer MEDICAID, SELFPAY ==
--- NOTE | 2023-02-20 | IMM_PTH ---
PATIENT: XUAN SHELTON [place] [facility] [id number] AGE/SX: 27/F ROOM: RE02/20/[address]: Dr. Bjorn Mcclellan MD : 1995 BED: DIS: 02/20/2023 SPEC #: [id number] RECD: 02/21/23 12:12 STATUS: ANGIE REQ #: [id number] LYLE: 02/20/23 00:[address]: Bjorn Mcclellan DEPT: IMMUNOHISTOCHEMISTRY RECD BY: Anna Flores ENTERED: 02/21/23 12:13 SP TYPE: IMMUNO OTHR DR: Dr. Semaj Simmons DO Tissues: UTERINE CERVIX LEEP Procedures: p16 (initial) KI-67 (add) PHYSICIAN & [place] [id number] SPECIMEN INFORMATION: Tissue Source: Cervical LEEP Clinical Info: Cervical dysplasia Specimen Number: [id number] #3 CPT code: 17435, 00454 METHODOLOGY: Deparaffinized sections of prefer/formalin-fixed tissue or PAP/DQ stained slides are incubated with monoclonal/polyclonal antibodies/oligonucleotide probes. Localization is made via biotin free immunoperoxidase method. Appropriate controls are performed and reacted as expected. Results on target cell population are indicated in the following table: RESULTS: ANTIBODY / CLONE RESULT Block 3 P16 (E6H4) positive, block staining Ki-67 (30-9) positive, moderate These tests were developed and their performance characteristics determined by [facility]. They may not have been cleared or approved by the U.S. Food and Drug Administration. The FDA has determined that such clearance or approval is not necessary. The above immunohistochemical/dualISH markers are ordered and reviewed by the Pathologist. INTERPRETATION: Cervix, LEEP conization: Moderate squamous dysplasia. NORA:livan 02/22/2023
[2023-02-20 06:28] VITALS: BP 107/68; PULSE 68; RESP 14; TEMP 36.9; O2SAT 100; BMI 29.0
[2023-02-20 06:37] LABS: Internal QC Validated? YES +Cl - CLEAR BKGD; Pregnancy, Urine Negative Negative
[2023-02-20] MEDS: Lactated Ringers 1,000 ML 15 ML IV (06:39)
--- NOTE | 2023-02-20 07:25 | PCM.HP.BLA ---
History and Physical Date of Admission: 02/20/23 Chief complaint: LEEP procedure History present illness: 27-year-old arrives for LEEP procedure. No medical changes since last seen. All questions answered and consent signed. Obstetric history: with a history of 2 vaginal deliveries Past medical history: None Medications: None Allergies: No known drug allergies Past surgical history: None Social history: 1 pack/day smoker, denies alcohol or drug use Family history: Denies history DVT or PE Review of systems: Besides above pertinent positives a full review of systems was performed and found to be negative Physical exam: Vitals: Blood pressure 107/68 pulse 68 respiratory rate 14 temperature 98.5 ?F SPO2 100% room air General: Normal-appearing no acute distress HEENT: Normocephalic/atraumatic no cervical lymphadenopathy Cardiac/respiratory: No use of accessory muscles, nonlabored breathing Abdomen: Soft, nontender, nondistended Extremities: No peripheral edema normal peripheral pulses Psych: Normal affect normal demeanor nonpressured speech Labs: Urine test negative Assessment/Plan: 27-year-old arrives for LEEP procedure. Educated patient on risk benefits alternatives of the procedure include but are not limited to visceral or vascular injury, prolonged hospitalization, blood loss need for transfusion, reoperation. Patient state understanding wish to proceed. All questions answered consent was signed.
--- NOTE | 2023-02-20 07:30 | CONE_PTH ---
PATIENT: XUAN SHELTON [place] [facility] [place] U[place][id number] AGE/SX: 27/F ROOM: RE02/20/[address]: Dr. Bjorn Mcclellan MD : 1995 BED: DIS: 02/20/2023 SPEC #: [id number] RECD: 02/20/23 08:44 STATUS: ANGIE JABIER #: [id number] LYLE: 02/20/23 07:[address]: Bjorn Mcclellan DEPT: SURGICAL PATHOLOGY RECD BY: Mishel Haddad ENTERED: 02/20/23 10:05 SP TYPE: Leep Cone LIBRA DR: Dr. Semaj Simmons, Tissues: UTERINE CERVIX LEEP Procedures: Surgery Specimen Level V HEADER OPERATION: LEEP cone PRE-OP DIAGNOSIS: Cervical dysplasia TISSUE SUBMITTED: Cervical LEEP ? 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 Moderate acute and chronic inflammation and squamous metaplasia. See comment. SJ:livan 02/21/2023 COMMENT Dysplastic changes are noted in the smallest fragments are the tissue submitted. Focal mild dysplasia is noted at the resection margin of the smallest piece. Resection margin cannot be evaluated definitely due to the specimen received in multiple pieces. Immunohistochemistry ([id number]) for surrogate HPV marker (p16) supports the above diagnosis. Please make reference to previous specimen ([id number]), cervix, 1, 7 and 11 o?clock, biopsy with diagnosis of ?mild and moderate squamous dysplasia with HPV changes.? Case has been reviewed in consultation with Dr. Antoine who concurs with the above diagnosis. IDC:AM MICROSCOPIC DESCRIPTION Slides are reviewed. GROSS DESCRIPTION Received in fixative is one container labeled with the patient's name and designated cervical LEEP, suture castillo 12 o?clock. The specimen consists of four variable sized pieces of mills, indurated tissue measuring in aggregate 2.6 x 1.5 x 0.4 cm. The piece with suture measures 1.2 x 1.0 x 0.2 cm. The smallest piece measures 0.5 cm in greatest dimension. No mucosal lesion is identified. Nonmucosal surface is inked black. Also present in the container are multiple fragments of hemorrhagic mucoid tissue? measuring in aggregate 1.5 x 1.5 x 0.1 cm. The entire specimen is submitted in four cassettes as follows: 1 - piece with suture marked as 12 o?clock, 2 - second largest piece, 3 - two smaller pieces, 4??hemorrhagic mucoid tissue. / SJ:livan 02/20/2023 TC:5 CPT: 77847
[2023-02-20] MEDS: Cefazolin 2 GM in 0.9% Normal Saline 100 ML IV (07:39)
[2023-02-20] MEDS: Iodine/Potassium Iodide 14ML Bottle 1 DRP TOPICAL (07:51)
[2023-02-20] MEDS: FERRIC SUBSULFATE 8 GM SOLN (08:20)
--- NOTE | 2023-02-20 08:31 | DCINST_ITS ---
Discharge Instructions Diet Discharge Diet: No restrictions Activity Discharge Activity: Return to Normal Activity, May Drive and May Shower May resume sexual activity in: 6-8 weeks Weight Bearing Status: Weight bearing as tolerated Dressing / Incision Call your doctor if your incision/area has: Continuous Slow Oozing and Foul Smelling Discharge Call your doctor if you observe: Fever of 101 or Higher, Shortness of breath and Chest pain Follow Up Care Please Follow Up With: Bjorn Mcclellan MD When: 2 weeks postoperatively Test Results: Test results from this visit will be discussed in further detail at your follow- up appointment, if applicable. Discharge Plan Admission Attending Provider: Bjorn Mcclellan Primary Care Provider: Semaj Simmons Discharge Orders/Prescriptions Prescriptions: No Action NK Referrals / Follow Up: Semaj Simmons DO [Primary Care Provider] - Disposition Disposition (needs filled in before D/C Order can be placed): Home, Self Care
--- NOTE | 2023-02-20 08:32 | PCM.OPRPT ---
Report of Operation Date of Procedure: 02/20/23 Pre-Operative Diagnosis: Cervical dysplasia Post-Operative Diagnosis: Cervical dysplasia Surgery/Procedure Performed:: Loop electrosurgical excision procedure Description of Surgical Findings:: Surgeon: Bjorn Mcclellan MD Anesthesia: MAC EBL: 25 cc Urine output: 150 cc IV fluids: 500 cc Complications: None Specimen: Cone biopsy, noon with nylon stitch Findings: Local solution placed over cervix, signs of dysplasia at 9:00. Left vaginal mucosal cautery noted after patient moved during LEEP procedure under anesthesia, repaired with 0 Vicryl suture with interrupted sutures. Sturmdorf sutures placed at Cone biopsy site along with Monsel solution. Consent: Patient with cervical dysplasia elects for LEEP procedure. Patient understands risks of the procedure include but are not limited to visceral or vascular injury, prolonged hospitalization, blood loss need for transfusion, reoperation. Patient state understanding wish to proceed. All questions were answered and consent was signed. Procedure: Patient was brought back to the OR where MAC anesthesia was used. 2 g Ancef were given for infection prophylaxis. Patient was prepared and draped in a dorsolithotomy position with yellowfin stirrups. Speculum was inserted, local solution placed over cervix and above findings were noted. Using loop tipped Bovie LEEP and cone biopsy were obtained and sent to pathology nylon suture placed at noon portion of the sample, all portions of the dysplasia that were visible were included in the biopsy. As noted above during loop cautery patient moved during procedure woke up from anesthesia and left vaginal mucosa superficial touch by loop cautery, laceration repaired with 0 Vicryl suture interrupted sutures. Good hemostasis was noted at vaginal mucosal site. Rollerball cautery was used at Cone biopsy site. Sturmdorf suture placed using 0 Vicryl, good hemostasis was noted. Monsel solution placed over surgical site. Good hemostasis was noted. All counts were correct x2. Patient tolerated procedure well and was brought to recovery in stable condition.
[2023-02-20 08:34] VITALS: BP 107/68; BP 109/67; PULSE 77; RESP 16; TEMP 36.6; O2SAT 100
[2023-02-20 08:45] VITALS: BP 107/68; BP 111/77; PULSE 66; RESP 14; O2SAT 100
[2023-02-20 09:00] VITALS: BP 100/70; BP 107/68; PULSE 65; RESP 14; O2SAT 97
[2023-02-20 09:15] VITALS: BP 107/68; BP 95/70; PULSE 66; RESP 16; TEMP 36.1; O2SAT 98
[2023-02-20 09:49] VITALS: BP 107/68
== END 2023-02-20 10:14 | disposition home or self-care (01) ==
LOC: SDC 05:41 → AC 05:42
PROVIDERS: Anesthesiology; PCP Student in an Organized Health Care Education/Training Program; Referring Provider Obstetrics & Gynecology; Visit Provider Obstetrics & Gynecology
PROC: 0UBC7ZZ Excision of Cervix, Via Natural or Artificial Opening (ICD-10-PCS; CPT 57522; principal; 2023-02-20 07:15)
DX: N87.9 Dysplasia of cervix uteri, unspecified (principal); F17.210 Nicotine dependence, cigarettes, uncomplicated
CPT/HCPCS: 57522; 00940; 81025; 88307; 88341; 88342; J7120; J2405